=== PATIENT | female | born 1960 | race Caucasian/White ===

== ENCOUNTER → 2024-10-30 13:30 | Outpatient (CLI) | payer MEDICARE, OTHER, SELFPAY ==
--- NOTE | 2024-10-30 13:32 | DI.RAD.S_ITS ---
PROCEDURE: XR PELVIS 1V INDICATIONS: Pelvic pain, previous pelvic fracture TECHNIQUE: 1 view of the pelvis acquired. COMPARISON: None. 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 Mild degenerative changes lower lumbar spine and sacroiliac joints. No radiographic evidence of displaced fracture, dislocation or high attenuation foreign body. IMPRESSION: Degenerative changes. If symptoms persist or worsen, or there is high clinical suspicion of pelvic/hip abnormality, MRI could be performed. Dictated by: Norman Jaimes M.D. on 10/30/2024 at 16:21 Approved by: Norman Jaimes M.D. on 10/30/2024 at 16:23
== END ==
PROVIDERS: Referring Provider Nurse Practitioner Family; Visit Provider Nurse Practitioner Family
DX: R10.2 Pelvic and perineal pain (principal); M16.0 Bilateral primary osteoarthritis of hip; M47.817 Spondylosis without myelopathy or radiculopathy, lumbosacral region
CPT/HCPCS: 72170